=== PATIENT | female | born 1995 | race Caucasian/White ===

== ENCOUNTER 2016-11-10 05:49 | Day surgery (SDC) | payer BC ==
[2016-11-10] MEDS ORDERED: LIDOCAINE 1% 5 ML SDV ONE (06:05)
[2016-11-10] MEDS ORDERED: ROPIVACAINE HCL 20 MG/10 ML INJ EP ONE (06:46)
[2016-11-10] MEDS ORDERED: MIDAZOLAM 2 MG/2 ML VIAL ONE (07:15)
[2016-11-10] MEDS ORDERED: DEXAMETHASONE 4 MG/ML VIAL ONE ×2 (07:23)
[2016-11-10] MEDS ORDERED: PROPOFOL 200 MG/20 ML VIAL ONE (07:23)
[2016-11-10] MEDS ORDERED: METOCLOPRAMIDE 10 MG/2 ML VIAL ONE (07:24)
[2016-11-10] MEDS ORDERED: LIDOCAINE 2% 100 MG/5 ML SYR IVP ONE (07:24)
[2016-11-10] MEDS ORDERED: KETOROLAC 30 MG/1 ML SDV ONE (07:46)
[2016-11-10] MEDS ORDERED: LABETALOL HCL 5 MG/ML 20 ML MDV ONE (09:16)
[2016-11-10] MEDS ORDERED: SUGAMMADEX SODIUM 200 MG/2 ML VIAL IVP ONE (09:57)
[2016-11-10] MEDS ORDERED: fentaNYL 100 MCG/2 ML INJ ONE (10:34)
--- NOTE | 2016-11-10 10:50 | GOP ---
[f rep st] OPERATIVE REPORT DATE OF OPERATION: SURGEON: Josephine Marie MD HOCKEY PLAYER: Monica Hernández, PAC, medically required for positioning of the leg during arthroscopic hi p procedure with removal of loose bodies, necessary for positioning of the leg for capsular access an d careful retraction of vital neurovascular structures. PREOPERATIVE DIAGNOSIS: 1. Right hip loose bodies. 2. 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 3. Synovitis. 4. Adhesive capsulitis. 5. Labral tear. 6. Cam impingement. POSTOPERATIVE DIAGNOSIS: 1. Right hip loose bodies. 2. 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 3. Synovitis. 4. Adhesive capsulitis. 5. Labral tear. 6. Cam impingement. PROCEDURE PERFORMED: 1. Arthroscopic loose body removal. Multiple loose bodies within the joint and inferior capsular re cess. 2. Extensive synovectomy. 3. Arthroscopic hip labral debridement. 4. Arthroscopic Cam femoral osteoplasty. 5. Arthroscopic capsular release. FINDINGS: ESTIMATED BLOOD LOSS: Minimal. INDICATIONS: A 21-year-old female, who had locking, catching and stiffness of her right hip. Clinic al radiographic and MRI confirmed multiple loose bodies, suspected synovial chondromatosis. The michelle ent elects for operative intervention for a mechanical locking and catching of her right hip. DESCRIPTION OF PROCEDURE: The patient identified in the preoperative holding area. Consent, lateral ity and preoperative antibiotics were confirmed and delivered. All questions were answered. Her mot her was available for questions and answers at the bedside. She came in from [place] last night. Righ t hip was identified. She had a stiff 75 degrees of hip flexion with painful internal external rotat ion of about 20 degrees each. Right hip was identified. Patient brought into the operating room under general anesthesia. All extremities well padded. The right upper extremity was padded and placed across her chest. The well leg was well padded over her leg and ankle and placed in slight traction with an oversized Wiley [employer] Nephew bolster peroneal post. The right leg was placed in 10 degrees of hip flexion, neutral alignment, neutral adduction with th e kneecaps pointing straight up towards the ceiling. Total traction time was 90 minutes. Total surgical time was 2 hours. The patient was prepped and draped in the usual sterile fashion. A shower curtain was used. A stand venancio anterolateral portal was made with a guide 6.5 inch spinal Nitinol wire with successive dilation. A pivot nontraumatic cannula was then placed. We then placed a mid anterolateral portal with the s khalida technique into the anterior capsule. There was some indentations of the cartilage, likely second sivan to the multiple loose bodies. We encountered 2 loose bodies in the ligamentum teres area right o ff the bat. We did a capsulectomy with the Samurai blade. Connected the 2 portals. We did use the multiple veena to access the joint. The labrum was stable, but had some scuffing and thus was debr ided from the 12 o'clock to 3 o'clock position. She had an overhanging lip off the superior femoral head and neck junction that went into the kind of a flat Cam lesion. We did a labral debridement, li gamentum teres debridement, removed the 2 loose bodies that were in the ligamentum teres area. We th en reduced the hip joint and then accessed the inferior capsule, approximately 270 degrees around. U p and over the top of the femoral neck head junction and found 3 or 4 more loose bodies ranging in 5 mm in size to 9 mm in size and then with hip extension of about 20 degrees, we were able to access th e posterior capsule and found another few loose bodies down there. Most of the loose bodies were in a gravity-dependent position and inferior. We took a picture of the multiple loose bodies and sent t hem off for pathology. All debris was removed. The osteoplasty was performed under direct vision in a semi frog lateral position with the C-arm in a frog lateral position. We had nice contouring. Ap proximately 3 mm of the femoral neck head junction was removed and the overhanging lip was beveled. We placed a 6-1/2 inch spinal needle, placed 30 cc of 0.2% ropivacaine into the joint. I closed up t he wounds with 3-0 nylon. A sterile dressing was applied with Xeroform, 4x4s, ABD, and Medipore tape . COMPLICATIONS: None. TOTAL TRACTION TIME: 90 minutes. TOTAL SURGICAL TIME: 2 hours. DISPOSITION: Extubated awake to the PACU in stable condition. /[id number]/MODL
[2016-11-10] MEDS ORDERED: ONDANSETRON 4 MG/2 ML VIAL ONE ×2 (11:09→12:01)
[2016-11-10] MEDS ORDERED: oxyCODONE IR 5 MG TAB ONE (11:55)
--- NOTE | 2016-11-10 17:46 | DX ---
Intraoperative Fluoroscopy History: Right hip surgery Fluoroscopy time = 83.8 seconds Fluoroscopy dose = 11.83 mGy Findings : 5 intraoperative spot films demonstrate arthroscopic probes coursing over the right femora l neck. Impression: Right hip arthroscopic surgery
== END 2016-11-10 12:50 | disposition home or self-care (01) ==
LOC: FSGY 05:49
PROVIDERS: ATTEND Orthopaedic Surgery
PROC: 0SQ94ZZ Repair Right Hip Joint, Percutaneous Endoscopic Approach (ICD-10-PCS; principal; 2016-11-10 07:30)
PROC: 0SB94ZZ Excision of Right Hip Joint, Percutaneous Endoscopic Approach (ICD-10-PCS; principal; 2016-11-10 07:30)
DX: M24.051 Loose body in right hip (principal); M65.88 Other synovitis and tenosynovitis, other site; M24.151 Other articular cartilage disorders, right hip; M25.851 Other specified joint disorders, right hip; D48.1 Neoplasm of uncertain behavior of connective and other soft tissue
CPT/HCPCS: C1769; J0690; J1100; J1885; J2001; J2250; J2405; J2704; J2765; J2795; J3010; J3490